=== PATIENT | female | born 1990 | race Caucasian/White ===

== ENCOUNTER 2020-06-24 10:28 | Inpatient (IN) ==
[2020-06-24] MEDS ORDERED: Lactated Ringers 1000 ml BAG 1,000 ML IV ONE (12:11)
[2020-06-24] MEDS ORDERED: Dinoprostone 10 MG VAG.SUPP VAGINAL ONE (12:11)
[2020-06-24] MEDS ORDERED: Buffered Lidocaine 1% SYRIN 1 ml INTRADERM ONE (12:11)
[2020-06-24 18:37] LABS: Urine Benzodiazepine Screen None Detected (None Detect); Urine Cannabinoids Screen None Detected (None Detect); Urine Opiates Screen None Detected (None Detect)
[2020-06-25] MEDS ORDERED: Oxytocin in LR 20 UNITS/1,000 ML BAG IVPB SCH ×2 (03:00→10:00)
[2020-06-25] MEDS: Lactated Ringers 1000 ml BAG 1,000 ML IV SCH (09:55)
[2020-06-25] MEDS ORDERED: Lactated Ringers 1000 ml BAG 1,000 ML IV SCH (10:00)
[2020-06-25 10:14] LABS: ABS Lymphocytes 1.9 10^3/ul (1.0-4.8); ABS Monocytes 0.8 10^3/ul (0-0.8); ABS Neutrophils 8.8 10^3/ul (1.5-7.7); Eosinophil % 0.3 %; Hematocrit 39 % (35-47); Hemoglobin 13.2 g/dL (12.0-16.0); Lymphocyte % 16.3 %; Mean Corpuscular HGB Conc 34 g/dL (31-36); Mean Corpuscular Hemoglobin 31 pg (27-31); Mean Corpuscular Volume 92 fL (80-97); Mean Platelet Volume 10.3 fL (7.4-10.4); Platelet Count 191 10^3/uL (150-450); Red Blood Count 4.29 10^6 /uL (3.70-4.87); Red Cell Distribution Width 13 % (10-15); White Blood Count 11.5 10^3/uL (3.5-10.8)
[2020-06-26] MEDS: Lactated Ringers 1000 ml BAG 1,000 ML IV SCH (08:48)
[2020-06-26] MEDS ORDERED: Oxytocin in LR 20 UNITS/1,000 ML BAG IVPB SCH (09:00)
[2020-06-27] MEDS ORDERED: Oxytocin in LR 20 UNITS/1,000 ML BAG IVPB SCH ×2 (01:00→10:00)
[2020-06-27] MEDS: Lactated Ringers 1000 ml BAG 1,000 ML IV SCH ×2 (04:16→06:08)
[2020-06-27] MEDS ORDERED: OBEPIDURAL 250 ML EPIDURAL ONE (04:46)
[2020-06-27] MEDS ORDERED: Sodium Citrate/Citric Acid LIQ 15 ML UDC PO PRN (06:15)
[2020-06-27] MEDS ORDERED: Lactated Ringers 1000 ml BAG 1,000 ML IV ONE (06:15)
[2020-06-27] MEDS ORDERED: Lactated Ringers 1000 ml BAG 500 ML IV PRN ×2 (06:15)
[2020-06-27] MEDS ORDERED: Phenylephrine 40 mcg/mL 10mL (400mcg) SYRINGE IV PUSH PRN ×2 (06:15)
[2020-06-27] MEDS ORDERED: Lactated Ringers 1000 ml BAG 1,000 ML IV SCH ×2 (07:00→10:00)
[2020-06-27] MEDS ORDERED: OBEPIDURAL 250 ML EPIDURAL SCH (07:00)
[2020-06-27] MEDS ORDERED: Witch Hazel PAD JAR TOPICAL PRN (09:31)
[2020-06-27] MEDS ORDERED: Dibucaine 1% OINT 28.35 GM TUBE PR PRN (09:31)
[2020-06-27] MEDS ORDERED: Glycerin ADULT 2.4 gm SUPP PR PRN (09:31)
[2020-06-27] MEDS ORDERED: Witch Hazel PAD JAR ONE (11:30)
[2020-06-27] MEDS ORDERED: Lidocaine 1% VIAL 10 MG/ML VIAL ONE (13:19)
[2020-06-27] MEDS: Lidocaine 2% JELLY 6 ML TOPICAL PRN (13:46)
[2020-06-28 08:06] LABS: ABS Basophils 0.1 10^3/ul (0-0.2); ABS Neutrophils 8.6 10^3/ul (1.5-7.7); Eosinophil % 0.4 %; Hematocrit 35 % (35-47); Hemoglobin 11.5 g/dL (12.0-16.0); Lymphocyte % 16.9 %; Mean Corpuscular HGB Conc 33 g/dL (31-36); Mean Corpuscular Hemoglobin 31 pg (27-31); Mean Corpuscular Volume 93 fL (80-97); Mean Platelet Volume 10.1 fL (7.4-10.4); Platelet Count 170 10^3/uL (150-450); Red Blood Count 3.74 10^6 /uL (3.70-4.87); Red Cell Distribution Width 14 % (10-15); White Blood Count 11.7 10^3/uL (3.5-10.8)
[2020-06-29 08:06] VITALS: BP 126/87
[2020-06-29] MEDS: Lidocaine 2% JELLY 6 ML TOPICAL PRN (09:29)
== END 2020-06-29 12:54 | disposition home or self-care (01) | DRG 806 ==
LOC: MCHOBOUT 10:28 → MCHOB 12:09
PROVIDERS: ADMIT Obstetrics & Gynecology; ATTEND Obstetrics & Gynecology